=== PATIENT | female | born 1970 | race Caucasian/White ===

== ENCOUNTER → 2017-01-31 | Outpatient (CLI) | payer BC | LOC: RAD 15:10 | PROVIDERS: ATTEND Family Medicine | DX: R20.2 Paresthesia of skin (principal); M50.822 Other cervical disc disorders at C5-C6 level | CPT/HCPCS: 72050 ==

== ENCOUNTER 2017-02-19 19:52 | Observation (INO) | payer BC ==
--- NOTE | 2017-02-19 20:34 | ER Document Report ---
ED General - General Chief Complaint: Chest Pain Stated Complaint: CHEST PAIN Time seen by provider: 20:31 Mode of Arrival: Ambulatory Information source: Patient Notes: The patient is a 46-year-old female with a history of pulmonary sarcoidosis, fibromyalgia, hypokalemia, depression and anxiety. Patient presents to the emergency room with chest tightness for the past 2 days. 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 She felt that her speech was slurred and she was difficulty getting her thoughts across. She denied any focal weakness of her arms and legs. The patient states that her neurologic symptoms lasted approximately 6 hours. Medications: KCl (120 mEq a day), Savella, Xanax, Wellbutrin, Combivent, omega-3 Allergies: Azithromycin, Septra Past surgical history: Fibroids, mediastinoscopy, cardiac ablation for SVT Primary care physician: Anita [employer] Officer: Isaiahorientkhanh Family history: Mother positive for the VTE, coronary artery disease, CHF. Dad: of lymphoma Patient has 3 brothers one of which had a heart attack Patient has 4 sisters TRAVEL OUTSIDE OF THE [place] IN LAST 30 DAYS: No - HPI Onset: Yesterday Onset/Duration: Gradual Quality of pain: Sharp Severity: Moderate Pain Level: 2 Associated symptoms: Chest pain. denies: Fever, Nausea, Shortness of breath Exacerbated by: Denies Relieved by: Denies Similar symptoms previously: Yes Recently seen / treated by doctor: No - Related Data Allergies/Adverse Reactions: Sulfa (Sulfonamide Antibiotics) Allergy (Mild, Verified 12/23/14 17:20) azithromycin [From Zithromax] Allergy (Verified 02/20/17 02:22) Past Medical History - General Information source: Patient - Social History Smoking Status: Never Smoker Cigarette use (# per day): No Chew tobacco use (# tins/day): No Frequency of alcohol use: None Drug Abuse: None Lives with: Family Family History: Arthritis, CAD, CVA, Hyperlipidemia, Hypertension, Malignancy, Other - CHF Patient has suicidal ideation: No Patient has homicidal ideation: No - Past Medical History Cardiac Medical History: Reports: Hx Hypercholesterolemia, Hx Hypertension Pulmonary Medical History: Reports: Hx Asthma Renal/ Medical History: Denies: Hx Peritoneal Dialysis GI Medical History: Reports: Hx Gastroesophageal Reflux Disease, Hx Hiatal Hernia Musculoskeltal Medical History: Reports Hx Fibromyalgia Psychiatric Medical History: Reports: Hx Anxiety, Hx Depression Past Surgical History: Reports: Hx Abdominal Surgery - lap neisen, Hx Cardiac Surgery - ablation 2003, Hx Hysterectomy - Immunizations Immunizations up to date: Yes Hx Diphtheria, Pertussis, Tetanus Vaccination: Yes Hx Pneumococcal Vaccination: 09/25/14 Review of Systems - Review of Systems Constitutional: denies: Chills, Fever EENT: No symptoms reported Cardiovascular: See HPI Respiratory: See HPI Gastrointestinal: No symptoms reported Genitourinary: No symptoms reported Female Genitourinary: No symptoms reported Musculoskeletal: No symptoms reported Skin: No symptoms reported Hematologic/Lymphatic: No symptoms reported Neurological/Psychological: See HPI Physical Exam - Vital signs Vitals: Resp BP Pulse Ox 14 106/77 100 02/19/17 20:33 02/19/17 20:33 02/19/17 20:33 Notes: Physical exam: GENERAL: 46-year-old female, alert and oriented 3, no acute distress HEAD: Atraumatic, normocephalic. EYES: Pupils equal round and reactive to light, extraocular movements intact, sclera anicteric, conjunctiva are normal. ENT: TMs normal, nares patent, oropharynx clear without exudates. Moist mucous membranes. NECK: Normal range of motion, supple without lymphadenopathy or JVD. LUNGS: Breath sounds clear to auscultation bilaterally and equal. No wheezes rales or rhonchi. HEART: Regular rate and rhythm without murmurs, rubs or gallops. ABDOMEN: Soft, normoactive bowel sounds. No tenderness to palpation. No guarding, no rebound. No masses appreciated. EXTREMITIES: Normal range of motion, no pitting or edema. No clubbing or cyanosis. NEUROLOGICAL: Cranial nerves II through XII grossly intact. Normal speech, normal gait. PSYCH: Normal mood, normal affect. SKIN: Warm, Dry, normal turgor, no rashes or lesions noted. Course - Re-evaluation Re-evalutation: 02/19/17 23:19 CTA shows no acute pulmonary emboli. Waiting for a hospitalist for admission. - Vital Signs Vital signs: Temp Pulse Resp BP Pulse Ox 12 112/70 96 02/19/17 23:36 02/19/17 23:36 02/19/17 23:36 - Laboratory Result Diagrams: 02/19/17 21:16 02/19/17 21:16 Laboratory results interpreted by me: 02/19/17 02/20/17 21:16 00:12 Potassium 2.2 L* Chloride 95 L Carbon Dioxide 31 H Est GFR (Non-Af Amer) 53 L Magnesium 1.5 L - Diagnostic Test Radiology reviewed: Image reviewed, Reports reviewed - CT of the head shows no obvious abnormalities. CT of the chest shows no pulmonary emboli. - EKG Interpretation by Me Rate: Normal Rhythm: NSR - EKG shows normal sinus rhythm with a ventricular rate of 85, nonspecific T changes Discharge - Discharge Clinical Impression: chest pain, hypokalemia, hypomagnesemia Admitting Provider: Hospitalist - Dr. Melchor Unit Admitted: Telemetry Referrals: EDWAR ESCUDERO MD [Primary Care Provider] - Follow up as needed
[2017-02-19 21:33] LABS: ABSOLUTE BASOPHILS # (AUTO) 0.1 10^3/uL (0.0-0.2); ABSOLUTE EOSINOPHILS # (AUTO) 0.1 10^3/uL (0.0-0.6); ABSOLUTE LYMPHOCYTES (AUTO) 2.5 10^3/uL (0.5-4.7); ABSOLUTE MONOCYTES (AUTO) 0.5 10^3/uL (0.1-1.4); ABSOLUTE NEUT (AUTO) 2.7 10^3/uL (1.7-8.2); EOSINOPHILS % (AUTO) 1.5 % (0-6); HEMATOCRIT 38.1 % (36.0-47.0); HEMOGLOBIN 13.6 g/dL (12.0-15.5); HGB HCT DIFFERENCE 2.7; LYMPHOCYTES % (AUTO) 42.6 % (13-45); MEAN CORPUSCULAR HEMOGLOBIN 30.5 pg (27.0-33.4); MEAN CORPUSCULAR HGB CONC 35.7 g/dL (32.0-36.0); MEAN CORPUSCULAR VOLUME 86 fl (80-97); MONOCYTES % (AUTO) 7.9 % (3-13); RED BLOOD COUNT 4.46 10^6/uL (3.72-5.28); RED CELL DISTRIBUTION WIDTH 12.9 % (11.5-14.0); WHITE BLOOD COUNT 5.8 10^3/uL (4.0-10.5)
--- NOTE | 2017-02-19 21:35 | EKG REPORT ---
SEVERITY:- ABNORMAL ECG - SINUS RHYTHM ABNORMAL T, CONSIDER ISCHEMIA, LATERAL LEADS : Confirmed by: Eric Mayes 19-Feb-2017 21:34:36
[2017-02-19 21:46] LABS: ALANINE AMINOTRANSFERASE 35 U/L (9-52); ALKALINE PHOSPHATASE 70 U/L (38-126); ANION GAP 15 (5-19); ASPARTATE AMINO TRANSFERASE 36 U/L (14-36); BILIRUBIN,DIRECT 0.2 mg/dL (0.0-0.4); BLOOD UREA NITROGEN 16 mg/dL (7-20); CALCIUM 9.7 mg/dL (8.4-10.2); CARBON DIOXIDE 31 mmol/L (22-30); CHLORIDE 95 mmol/L (98-107); CREATINE KINASE 71 U/L (30-135); CREATININE RESULT 1.12 mg/dL (0.52-1.25); GLUCOSE 97 mg/dL (75-110); SODIUM 141.2 mmol/L (137-145); TOTAL PROTEIN 7.9 g/dL (6.3-8.2)
[2017-02-19 21:49] LABS: POTASSIUM 2.2 mmol/L (3.6-5.0)
[2017-02-19] MEDS ORDERED: POTASSIUM CHLORIDE 20 MEQ/15 ML UDCUP PO ONE (21:54)
[2017-02-19 22:05] LABS: CREATINE KINASE MB 0.62 ng/mL (<4.55); TROPONIN I < 0.012 ng/mL
[2017-02-19] MEDS: POTASSI CL 20 MEQ/50 ML RIDER 50 ML IV SCH (22:20)
[2017-02-20] MEDS: POTASSI CL 20 MEQ/50 ML RIDER 50 ML IV SCH ×3 (01:18→05:56)
[2017-02-20] MEDS: MAGNESIUM SULFATE/D5W 100 ML IV SCH ×2 (01:51→03:23)
[2017-02-20] MEDS: ENOXAPARIN SODIUM INJ 40 MG/0.4 ML DISP.SYRIN SUBCUT SCH (08:43)
[2017-02-20] MEDS: POTASSI CL 20 MEQ/D5NS 1L 1,000 ML IV PRN (08:44)
[2017-02-20] MEDS ORDERED: POTASSI CL 20 MEQ/50 ML RIDER 20 MEQ/50 ML RTUPB IV SCH (09:00)
[2017-02-20] MEDS: ACETAMINOPHEN 325 MG TABLET PO PRN ×2 (09:57→14:31)
[2017-02-20 09:58] LABS: APPEARANCE,URINE CLEAR; BILIRUBIN,URINE NEGATIVE (NEGATIVE); GLUCOSE, URINE NEGATIVE (NEGATIVE); KETONES,URINE NEGATIVE (NEGATIVE); LEUKOCYTE ESTERASE,URINE MODERATE (NEGATIVE); NITRITE,URINE NEGATIVE (NEGATIVE); PROTEIN,URINE NEGATIVE (NEGATIVE); URINE SPECIFIC GRAVITY 1.011; UROBILINOGEN,URINE NEGATIVE mg/dL (<2.0)
--- NOTE | 2017-02-20 10:03 | PDOC H&P ---
History of Present Illness Admission Date/PCP: 02/20/17 03:13 DR. Howard Patient complains of: chest pain, slurred speech, paresthesias History of Present Illness: TOOTIE MCKENZIE is a 46 year old female with underlying pulmonary sarcoidosis, fibromyalgia, intermittent hypokalemia, mild anxiety and depression , without suicidal or homicidal ideation, obstructive sleep apnea, on CPAP of 14 , easy bruising, mild reflux, asthma, and hyperlipidemia who presents to the emergency room for evaluation of above complaints. Patient has been discussed with emergency room physician who evaluated the patient. She describes a 2 day history of intermittent mild substernal chest pressure- like discomfort and tightness with radiation to her back. She's had prior such discomfort, but without the radiation to her back. Nothing in particular made the discomfort worse. Chest pain is currently resolved. No associated nausea vomiting, fever or chills. She also describes approximate 6 hour history on the 24 of mild slurring of her speech and difficulty getting her thoughts across, along with some mild numbness and tingling of the left side of her face. No focal weakness. No prior such episodes. No previous seizure stroke TIA or mini stroke. Does have a history of migraines, but currently denies any headache. Cardiac history is remarkable for an ablation of an aberrant tract in 2004 for SVT. No cardiac workup since then. No history of pulmonary embolus or DVT. No recent long trip with prolonged inactivity, or unusual lower extremity swelling or tenderness. Family history remarkable for brother with early coronary artery disease. Laboratory results are listed in [facility] and are reviewed. X-ray summary results are listed below, with full report(s) reviewed. . EKG reviewed. And compared to prior tracing from March 20 of last year. Social history/personal habits: Single. No children. Works as a private banker. No use of alcohol tobacco or illicit drugs. Allergies/adverse reactions are listed in [facility] and are reviewed. Home medications Home medications initially autopopulated into [facility] may not accurately reflect patient's true medications, dosages, and/or frequencies. 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 Unfortunately, patient uncertain of all her medications/dosages/frequencies. REVIEW OF SYSTEMS: Constitutional: No fever or chills. Eyes: Wears glasses. ENT: No swallowing problems or complaints. No hearing problems or complaints. Pulmonary: No current complaints. Cardiovascular: See history and present illness. Gastrointestinal: No current complaints, including nausea or vomiting. Skin: No current complaints, including rashes. Hematologic: Easy bruising. Neurologic: See history and present illness. Musculoskeletal: No current complaints, including painful joints. Psychiatric: Mild Anxiety depression; denies suicidal or homicidal ideation. Endocrine: No current complaints, including polyuria. Genitourinary: No current complaints, including dysuria. PHYSICAL EXAMINATION: 5 feet 4 inches tall. 74.8 kg. BMI 28.3 kg/m. Blood pressure 121/78. Pulse 83 and regular. 96% saturation on room air. Respirations are 12 and unlabored. Temperature not recorded on the chart; skin feels normothermic. Slightly overweight otherwise well-nourished well-developed middle-aged female appearing approximately her stated age. Pleasant awake alert and cooperative. No obvious distress other than perhaps mildly anxious. Female emergency room nurse Gilma is present. Skin is warm and dry. No grossly obvious evidence of rash in areas of skin examined. No subcutaneous nodules palpated. ENT: Hearing grossly normal to normal conversation. Tongue midline on protrusion pink and slightly moist. Eyes: No scleral icterus. Pupils equal and reactive to light at 4 mm. [place] conjunctivae. Neck is supple and nontender to gentle active range of motion and palpation. Midline trachea. No palpable thyroid nodule mass enlargement or tenderness. Lymphatic: No palpable cervical or clavicular nodes. Neck and lymphatic exams limited by patient body habitus. Psychiatric: Reasonable insight into acute and chronic medical issues. Oriented to time location and why here. Lungs: Auscultation reveals clear and equal breath sounds bilaterally. No use of accessory respiratory muscles. Cardiovascular: Heart regular rate and rhythm, without gallop murmur or rub. No carotid or abdominal aortic bruits. No ankle or pedal edema. Faintly palpable dorsalis pedis pulses. Abdomen: soft, slightly distended nontender with positive bowel sounds. Unable to adequately evaluate abdomen for masses or organomegaly due to distention. Compression of neither her upper abdomen nor sternum reproduces her previously noted chest discomfort. Extremities: Hands and Feet are warm and dry. No calf tenderness to compression. No grossly obvious visual evidence of calf swelling. Gentle manipulation of upper and lower extremities fails to reveal any obvious evidence of injury or instability to involved major joints. Neurologic: Cranial Nerves II through XII are grossly intact. Light touch intact at right face, right upper and lower extremities, but slightly decreased at same areas on the left. Motor function of major muscle groups upper and lower extremities 5 over 5 and symmetric. Patellar reflexes absent. Absent Babinski. Past Medical History Cardiac Medical History: Reports: Hyperlipidema, Hypertension, Other - History of SVT, status post ablation 2004. Denies: Congestive Heart Failure, DVT, Myocardial Infarction, Pulmonary Embolism Pulmonary Medical History: Reports: Asthma, Sleep Apnea - CPAP 14, room air. Denies: Chronic Obstructive Pulmonary Disease (COPD) EENT Medical History: Reports: Eyes - Glasses Denies: Ears, Throat Neurological Medical History: Reports: Migraine Denies: Hemorrhagic CVA, Ischemic CVA, Seizures Endocrine Medical History: Denies: Diabetes Mellitus Type 1, Diabetes Mellitus Type 2, Hyperthyroidism, Hypothyroidism Renal/ Medical History: Reports: None GI Medical History: Reports: Gastroesophageal Reflux Disease Denies: Cirrhosis, Hepatitis, Peptic Ulcer Disease Musculoskeltal Medical History: Reports: Fibromyalgia Skin Medical History: Reports: None Psychiatric Medical History: Reports: Depression, General Anxiety Disorder Denies: Alcohol Dependency, Substance Abuse, Tobacco Dependency Hematology: Reports: Other - Easy bruising Infectious Medical History: Denies: Clostridium Difficile, Hepatitis B, Hepatitis C, Methicillin- Resistant Staph Aureus Past Surgical History Past Surgical History: Reports: Hysterectomy Social History Information Source: Patient, Emergency Med Personnel, [facility] Records Smoking Status: Never Smoker Frequency of Alcohol Use: None Hx Recreational Drug Use: No Drugs: None Hx Prescription Drug Abuse: No - Advance Directive Resuscitation Status: Full Code Surrogate healthcare decision maker:: Uncertain at this point. Family History Family History: Arthritis, CAD, CVA, Hyperlipidemia, Hypertension, Malignancy, Other - CHF Parental Family History Reviewed: Yes - father non-Hodgkin's lymphoma. Mother is hypertensive. Children Family History Reviewed: NA Sibling(s) Family History Reviewed.: Yes - Hypertension Medication/Allergy Home Medications: RX: Alprazolam [Xanax] 1 mg PO Q8HP PRN 02/20/17 RX: Bupropion HCl [Bupropion HCl Sr] 450 mg PO DAILY 02/20/17 RX: Esomeprazole Magnesium [Nexium] 40 mg PO DAILY 02/20/17 RX: Hydrocodone/Ibuprofen [Hydrocodone-Ibuprofen 7.5-200] 1 each PO Q4HP PRN RX: Ipratropium/Albuterol Sulfate [Combivent Respimat 4 gm Mdi] 2 puff IH BID RX: Metoclopramide HCl [Reglan] 5 mg PO TIDP PRN 02/20/17 RX: Milnacipran HCl [Savella] 50 mg PO Q8HP PRN 02/20/17 RX: Montelukast Sodium [Singulair 10 mg Tablet] 10 mg PO WSUPPER 02/20/17 RX: [place]-3 Fatty Acids [[place]-3] 1,000 mg PO BID 02/20/17 RX: Potassium Chloride [K-Tab ER] 20 meq PO BID 02/20/17 RX: Pravastatin Sodium [Pravachol] 80 mg PO QHS 02/20/17 RX: Trazodone HCl [Desyrel] 75 mg PO QHS 02/20/17 RX: Aspirin [Ecotrin 325 mg EC Tablet] 325 mg PO DAILY tabec 02/21/17 RX: Spironolactone [Aldactone 25 mg Tablet] 50 mg PO DAILY #30 tablet 02/21/17 Allergies/Adverse Reactions: Sulfa (Sulfonamide Antibiotics) Allergy (Mild, Verified 12/23/14 17:20) azithromycin [From Zithromax] Allergy (Verified 02/20/17 02:22) Physical Exam Vital Signs: Temp Pulse Resp BP Pulse Ox 20 111/52 L 97 02/20/17 07:01 02/20/17 07:01 02/20/17 07:01 Results Impressions: Chest X-Ray 02/19/17 20:03 IMPRESSION: NO ACUTE RADIOGRAPHIC FINDING IN THE CHEST. Chest/Abdomen CTA 02/19/17 22:26 IMPRESSION: NORMAL CTA OF THE CHEST. NO PULMONARY EMBOLI. Head CT 02/19/17 22:26 IMPRESSION: NORMAL BRAIN CT WITHOUT CONTRAST. Assessment & Plan - Diagnosis (5) Acute focal neurological deficit Is this a current diagnosis for this admission?: YesPlan: Patient will be placed in observation bed under CVA/TIA protocol. Multiple imaging procedures, intracranial, vascular, and cardiac. lipid panel. Permissive hypertension. Patient is a full code. I have strongly urged patient not to get out of bed without notifying nursing staff, to avoid a fall with injury.] Knee high SCDs for DVT prophylaxis, along with subcutaneous Lovenox . Impression and plans were discussed with patient, who concurs. Time spent in evaluation and management of patient: 65 minutes (6) Chest pain Qualifiers: Chest pain type: unspecified Qualified Code(s): R07.9 - Chest pain, unspecified Is this a current diagnosis for this admission?: YesPlan: No evidence of acute coronary syndrome. Repeat troponin. Lipid panel. Repeat EKG. Encouraged patient to notify staff should chest pain recur. (7) Hypokalemia Is this a current diagnosis for this admission?: YesPlan: Potassium replacement with follow-up chemistry. (8) Hypomagnesemia Is this a current diagnosis for this admission?: YesPlan: Follow-up chemistry. Replace as needed. (9) Paresthesias Is this a current diagnosis for this admission?: Yes (10) Anxiety Is this a current diagnosis for this admission?: YesPlan: Resume home medications as appropriate once these have been determined and reviewed.
[2017-02-20] MEDS: DOCUSATE SODIUM 100 MG CAPSULE PO SCH ×2 (11:48→16:51)
[2017-02-20] MEDS: ASPIRIN 325 MG TABLET, ENT COATED PO SCH (14:22)
[2017-02-20 15:12] LABS: ANION GAP 15 (5-19); BLOOD UREA NITROGEN 8 mg/dL (7-20); CALCIUM 9.6 mg/dL (8.4-10.2); CARBON DIOXIDE 26 mmol/L (22-30); CHLORIDE 104 mmol/L (98-107); CHOLESTEROL 166.94 mg/dL (0-200); CREATININE RESULT 0.84 mg/dL (0.52-1.25); Direct HDL 66 mg/dL (>40); GLUCOSE 97 mg/dL (75-110); MAGNESIUM 2.2 mg/dL (1.6-2.3); SODIUM 145.1 mmol/L (137-145); TRIGLYCERIDES 118 mg/dL (<150)
[2017-02-20 15:17] LABS: PROTHROMBIN TIME 13.3 SEC (11.4-15.4)
[2017-02-20 15:18] LABS: PARTIAL THROMBOPLASTIN TIME 28.4 SEC (23.5-35.8)
[2017-02-20 15:22] LABS: DIRECT LDL 59 mg/dL (<100)
[2017-02-20 15:35] LABS: POTASSIUM 2.7 mmol/L (3.6-5.0)
[2017-02-20] MEDS ORDERED: SPIRONOLACTONE 25 MG TABLET PO ONE (16:35)
[2017-02-20] MEDS ORDERED: BUTALB/ACETAMINOPHEN/CAFFEINE 1 TAB EACH PO PRN (16:36)
--- NOTE | 2017-02-20 17:21 | XCELERA REPORT ---
[address] [address] Transthoracic Echocardiogram Report Name: TOOTIE MCKENZIE Age: 46 yrs Gender: Female : 1970 Patient Status: Inpatient Patient Location: \S\10\S\A Study Date: 02/20/2017 10:16 AM Height: 64 in Weight: 165 lb BSA: 1.8 m2 Procedure: A complete two-dimensional transthoracic echocardiogram was performed (2D, M-mode, spectral and color flow Doppler). The study was technically difficult with many images being suboptimal in quality. Reason For Study: tia vs cva Ordering Physician: MARA JIMEENZ Performed By: Hebert Tabor Interpretation Summary The left ventricular ejection fraction is normal. Doppler measurements suggest impaired left ventricular relaxation, which is associated with grade I/IV or mild diastolic dysfunction There is normal left ventricular wall thickness. The left ventricle is grossly normal size. Wall motion cannot be accurately commented on, but no definite regional wall motion abnormalities noted. Borderline right ventricular enlargement. The right ventricular systolic function is normal. The left atrial size is normal. The right atrium is normal in size There is a trace amount of mitral regurgitation There is no mitral valve stenosis. No aortic regurgitation is present. There is no aortic valve stenosis There is a trace or physiologic amount of tricuspid regurgitation Tricuspid regurgitation jet envelope not well defined to measure RV systolic pressure accurately. The aortic root is not well visualized. The inferior vena cava appeared normal and decreased > 50% with respiration (RAP 5-10 mmHg) There is no pericardial effusion. MMode/2D Measurements \T\ Calculations RVDd: 2.6 cm LVIDd: 4.3 cm FS: 33.4 % Ao root diam: 2.7 cm IVSd: 0.70 cm LVIDs: 2.8 cm EDV(Teich): 81.7 ml LVPWd: 0.66 cm ESV(Teich): 30.8 ml Ao root area: 5.5 cm2 EF(Teich): 62.4 % LA dimension: 2.8 cm Doppler Measurements \T\ Calculations MV E max jose: MV P1/2t max jose: Ao V2 max: LV V1 max P.9 cm/sec 76.2 cm/sec 124.1 cm/sec 3.7 mmHg MV A max jose: MV P1/2t: 56.7 msec Ao max PG: LV V1 max: 83.6 cm/sec 6.2 mmHg 95.7 cm/sec MV E/A: 0.93 MVA(P1/2t): 3.9 cm2 MV dec slope: 394.0 cm/sec2 PA V2 max: TR max jose: RAP systole: 93.3 cm/sec 181.3 cm/sec 10.0 mmHg PA max PG: TR max P.2 mmHg 3.5 mmHg RVSP(TR): 23.2 mmHg Left Ventricle The left ventricle is grossly normal size. There is normal left ventricular wall thickness. The left ventricular ejection fraction is normal. Doppler measurements suggest impaired left ventricular relaxation, which is associated with grade I/IV or mild diastolic dysfunction. Wall motion cannot be accurately commented on, but no definite regional wall motion abnormalities noted. Right Ventricle Borderline right ventricular enlargement. There is normal right ventricular wall thickness. The right ventricular systolic function is normal. Atria The right atrium is normal in size. The left atrial size is normal. Interarterial septum not well visualized and not well dopplered. Cannot comment on ASD/PFO presence. Mitral Valve The mitral valve is grossly normal. There is no mitral valve stenosis. There is a trace amount of mitral regurgitation. Aortic Valve The aortic valve is not well visualized secondary to technical limitations. There is no aortic valve stenosis. No aortic regurgitation is present. Tricuspid Valve The tricuspid valve is not well visualized secondary to technical limitations. There is no tricuspid stenosis. There is a trace or physiologic amount of tricuspid regurgitation. Tricuspid regurgitation jet envelope not well defined to measure RV systolic pressure accurately. Pulmonic Valve The pulmonic valve is not well visualized. Great Vessels The aortic root is not well visualized. The inferior vena cava appeared normal and decreased > 50% with respiration (RAP 5-10 mmHg). Effusions There is no pericardial effusion. : MARA JIMENEZ > Eric Mayes
[2017-02-20] MEDS: POTASSI CL 20 MEQ/50 ML RIDER 20 MEQ/50 ML RTUPB IV SCH ×2 (17:33→19:09)
--- NOTE | 2017-02-20 18:59 | PDOC PROGRESS REPORT ---
Subjective Progress Note for:: 02/20/17 Subjective:: Denies any complaints. Physical Exam Vital Signs: Temp Pulse Resp BP Pulse Ox 98.4 F 78 20 119/71 98 02/20/17 15:07 02/20/17 16:00 02/20/17 16:00 02/20/17 16:00 02/20/17 16:00 Intake & Output 02/19/17 02/20/17 02/21/17 06:59 06:59 06:59 Weight 76.1 kg General appearance: PRESENT: no acute distress Eye exam: PRESENT: conjunctiva pink. ABSENT: scleral icterus Mouth exam: PRESENT: moist, tongue midline Neck exam: ABSENT: JVD Respiratory exam: PRESENT: clear to auscultation tabby. ABSENT: rales, rhonchi, wheezes Cardiovascular exam: PRESENT: RRR. ABSENT: diastolic murmur, rubs, systolic murmur GI/Abdominal exam: PRESENT: normal bowel sounds, soft. ABSENT: distended, guarding, mass, organolmegaly, rebound, tenderness Extremities exam: ABSENT: calf tenderness, clubbing, pedal edema Neurological exam: PRESENT: alert, awake, oriented to person, oriented to place , oriented to time, oriented to situation, CN II-XII grossly intact. ABSENT: motor sensory deficit Psychiatric exam: PRESENT: appropriate affect Skin exam: PRESENT: dry, intact, warm. ABSENT: cyanosis, rash Results Laboratory Results: 02/20/17 14:30 02/20/17 02/20/17 08:55 14:30 Sodium 145.1 H Potassium 2.7 L* Chloride 104 Carbon Dioxide 26 Anion Gap 15 BUN 8 Creatinine 0.84 Est GFR ( Amer) > 60 Est GFR (Non-Af Amer) > 60 Glucose 97 Calcium 9.6 Magnesium 2.2 Triglycerides 118 Cholesterol 166.94 LDL Cholesterol Direct 59 VLDL Cholesterol 24.0 HDL Cholesterol 66 Urine Color STRAW Urine Appearance CLEAR Urine pH 7.0 Ur Specific [place] 1.011 Urine Protein NEGATIVE Urine Glucose (UA) NEGATIVE Urine Ketones NEGATIVE Urine Blood SMALL H Urine Nitrite NEGATIVE Ur Leukocyte Esterase MODERATE H Urine WBC (Auto) 1 Urine RBC (Auto) 0 02/20/17 14:30 Troponin I < 0.012 Impressions: Chest X-Ray 02/19/17 20:03 IMPRESSION: NO ACUTE RADIOGRAPHIC FINDING IN THE CHEST. Chest/Abdomen CTA 02/19/17 22:26 IMPRESSION: NORMAL CTA OF THE CHEST. NO PULMONARY EMBOLI. Head CT 02/19/17 22:26 IMPRESSION: NORMAL BRAIN CT WITHOUT CONTRAST. Brain MRI with MRA 02/20/17 07:46 IMPRESSION: NORMAL MRA OF [facility] [place] [facility] [place]. Head MRI 02/20/17 07:46 IMPRESSION: Normal brain. Carotid Doppler Study 02/20/17 07:47 IMPRESSION: NO HEMODYNAMICALLY SIGNIFICANT STENOSIS. Assessment & Plan - Diagnosis (1) Acute focal neurological deficit Is this a current diagnosis for this admission?: YesPlan: The patient had some paresthesias that may be related to her hypokalemia. Patient has had an MRI, carotid Doppler, echocardiogram which have been unrevealing. (2) Asthma Is this a current diagnosis for this admission?: Yes (3) HLD (hyperlipidemia) Is this a current diagnosis for this admission?: Yes (4) Hypokalemia Is this a current diagnosis for this admission?: YesPlan: Patient has had a long-standing problem with hypokalemia in spite of taking significant amounts of oral replacements. She also has had some problems with peripheral edema. I'm suspicious that this may represent hyperaldosteronism. We'll check an aldosterone level and start on spironolactone. (5) Hypomagnesemia Is this a current diagnosis for this admission?: Yes (6) NATHANIEL (obstructive sleep apnea) Is this a current diagnosis for this admission?: YesPlan: Continue with CPAP daily at bedtime. (7) Anxiety Is this a current diagnosis for this admission?: Yes (8) Fibromyalgia Is this a current diagnosis for this admission?: Yes (9) GERD (gastroesophageal reflux disease) Is this a current diagnosis for this admission?: Yes - Time Time Spent with patient: 25-34 minutes - Inpatient Certification Medical Necessity: Need Close Monitoring Due to Risk of Patient Decompensation - Plan Summary Plan Summary: If her potassium improves by morning we can discharge her home.
[2017-02-21] MEDS: POTASSI CL 20 MEQ/D5NS 1L 1,000 ML IV PRN ×2 (00:27→08:32)
[2017-02-21 05:20] LABS: ABSOLUTE BASOPHILS # (AUTO) 0.1 10^3/uL (0.0-0.2); ABSOLUTE EOSINOPHILS # (AUTO) 0.1 10^3/uL (0.0-0.6); ABSOLUTE LYMPHOCYTES (AUTO) 2.3 10^3/uL (0.5-4.7); ABSOLUTE MONOCYTES (AUTO) 0.4 10^3/uL (0.1-1.4); ABSOLUTE NEUT (AUTO) 1.8 10^3/uL (1.7-8.2); BASOPHILS % (AUTO) 1.5 % (0-2); EOSINOPHILS % (AUTO) 2.2 % (0-6); HEMATOCRIT 32.5 % (36.0-47.0); HEMOGLOBIN 11.7 g/dL (12.0-15.5); HGB HCT DIFFERENCE 2.6; LYMPHOCYTES % (AUTO) 50.1 % (13-45); MEAN CORPUSCULAR HEMOGLOBIN 31.1 pg (27.0-33.4); MEAN CORPUSCULAR HGB CONC 35.9 g/dL (32.0-36.0); MEAN CORPUSCULAR VOLUME 87 fl (80-97); MONOCYTES % (AUTO) 8.2 % (3-13); RED BLOOD COUNT 3.76 10^6/uL (3.72-5.28); RED CELL DISTRIBUTION WIDTH 12.9 % (11.5-14.0); WHITE BLOOD COUNT 4.7 10^3/uL (4.0-10.5)
[2017-02-21] MEDS: DOCUSATE SODIUM 100 MG CAPSULE PO SCH (09:20)
[2017-02-21] MEDS: ASPIRIN 325 MG TABLET, ENT COATED PO SCH (09:20)
[2017-02-21] MEDS: ENOXAPARIN SODIUM INJ 40 MG/0.4 ML DISP.SYRIN SUBCUT SCH (09:20)
[2017-02-21 09:21] LABS: ANION GAP 12 (5-19); BLOOD UREA NITROGEN 10 mg/dL (7-20); CALCIUM 9.2 mg/dL (8.4-10.2); CARBON DIOXIDE 25 mmol/L (22-30); CHLORIDE 108 mmol/L (98-107); CREATININE RESULT 0.91 mg/dL (0.52-1.25); GLUCOSE 122 mg/dL (75-110); POTASSIUM 3.2 mmol/L (3.6-5.0); SODIUM 145.1 mmol/L (137-145)
[2017-02-21] MEDS ORDERED: SPIRONOLACTONE 25 MG TABLET PO SCH (10:00)
[2017-02-21] MEDS: POTASSI CL 20 MEQ/50 ML RIDER 20 MEQ/50 ML RTUPB IV SCH ×2 (10:20→12:02)
[2017-02-21 12:48] VITALS: BP 133/77
--- NOTE | 2017-02-21 18:09 | PDOC DISCHARGE SUMMARY ---
General - Admit/Disc Date/PCP Admission Date/Primary Care Provider: 02/20/17 07:43 Discharge Date: 02/21/17 - Discharge Diagnosis (1) Acute focal neurological deficit Is this a current diagnosis for this admission?: YesSummary: Most likely secondary to her symptomatic hypokalemia. (2) Asthma Is this a current diagnosis for this admission?: Yes (3) HLD (hyperlipidemia) Is this a current diagnosis for this admission?: Yes (4) Hypokalemia Is this a current diagnosis for this admission?: YesSummary: Possibly secondary to hyperaldosteronism. Aldosterone levels pending at the time of this dictation. (5) Hypomagnesemia Is this a current diagnosis for this admission?: Yes (6) NATHANIEL (obstructive sleep apnea) Is this a current diagnosis for this admission?: Yes (7) Anxiety Is this a current diagnosis for this admission?: Yes (8) Fibromyalgia Is this a current diagnosis for this admission?: Yes (9) GERD (gastroesophageal reflux disease) Is this a current diagnosis for this admission?: Yes - Additional Information Resuscitation Status: Full Code Discharge Diet: Cardiac Discharge Activity: Activity As Tolerated Home Medications: Alprazolam [Xanax] 1 mg PO Q8HP PRN 02/20/17 Bupropion HCl [Bupropion HCl Sr] 450 mg PO DAILY 02/20/17 Esomeprazole Magnesium [Nexium] 40 mg PO DAILY 02/20/17 Hydrocodone/Ibuprofen [Hydrocodone-Ibuprofen 7.5-200] 1 each PO Q4HP PRN Ipratropium/Albuterol Sulfate [Combivent Respimat 4 gm Mdi] 2 puff IH BID Metoclopramide HCl [Reglan] 5 mg PO TIDP PRN 02/20/17 Milnacipran HCl [Savella] 50 mg PO Q8HP PRN 02/20/17 Montelukast Sodium [Singulair 10 mg Tablet] 10 mg PO WSUPPER 02/20/17 Midland-3 Fatty Acids [Midland-3] 1,000 mg PO BID 02/20/17 Potassium Chloride [K-Tab ER] 20 meq PO BID 02/20/17 Pravastatin Sodium [Pravachol] 80 mg PO QHS 02/20/17 Trazodone HCl [Desyrel] 75 mg PO QHS 02/20/17 Aspirin [Ecotrin 325 mg EC Tablet] 325 mg PO DAILY tabec 02/21/17 Spironolactone [Aldactone 25 mg Tablet] 50 mg PO DAILY #30 tablet 02/21/17 History of Present Illness History of Present Illness: TOOTIE MCKENZIE is a 46 year old female who presented to emergency room with some chest discomfort as well as some paresthesias. Patient has had problems with persistent hypokalemia. She presented with a six-hour history of some difficulty with her speech and tingling and numbness in the left side of her face and generalized weakness. Hospital Course Hospital Course: 46-year-old female admitted with what was initially thought to be a neurological deficit because of some paresthesias but this resolved with correction of her hypokalemia. Patient reports that she's had previous episodes but her potassium is down low. The patient has been taking supplements as an outpatient and has continued to have low potassium in spite of this. This was suspicious that she may have primary hyperaldosteronism. An aldosterone level was drawn and she was started on spironolactone. She also was given IV replacement potassium. The results of the aldosterone level were pending at the time of this dictation. Physical Exam Vital Signs: Temp Pulse Resp BP Pulse Ox 98.3 F 87 19 133/77 H 100 02/21/17 12:45 02/21/17 12:45 02/21/17 12:45 02/21/17 12:45 02/21/17 12:45 Intake & Output 02/20/17 02/21/17 02/22/17 06:59 06:59 06:59 Intake Total 2213 118 Balance 2213 118 Weight 79.3 kg General appearance: PRESENT: no acute distress Eye exam: PRESENT: conjunctiva pink. ABSENT: scleral icterus Ear exam: PRESENT: normal external ear exam Mouth exam: PRESENT: moist, tongue midline Neck exam: ABSENT: JVD Respiratory exam: PRESENT: clear to auscultation tabby. ABSENT: rales, rhonchi, wheezes Cardiovascular exam: PRESENT: RRR. ABSENT: diastolic murmur, rubs, systolic murmur GI/Abdominal exam: PRESENT: normal bowel sounds, soft. ABSENT: distended, guarding, mass, organolmegaly, rebound, tenderness Extremities exam: ABSENT: calf tenderness, clubbing, pedal edema Neurological exam: PRESENT: alert, awake, oriented to person, oriented to place , oriented to time, oriented to situation, CN II-XII grossly intact. ABSENT: motor sensory deficit Psychiatric exam: PRESENT: appropriate affect Skin exam: PRESENT: dry, intact, warm. ABSENT: cyanosis, rash Results Laboratory Results: 02/21/17 04:40 02/21/17 07:58 02/21/17 02/21/17 02/21/17 04:40 04:40 06:58 WBC 4.7 RBC 3.76 Hgb 11.7 L Hct 32.5 L MCV 87 MCH 31.1 MCHC 35.9 RDW 12.9 Plt Count 241 Seg Neutrophils % 38.0 L Lymphocytes % 50.1 H Monocytes % 8.2 Eosinophils % 2.2 Basophils % 1.5 Absolute Neutrophils 1.8 Absolute Lymphocytes 2.3 Absolute Monocytes 0.4 Absolute Eosinophils 0.1 Absolute Basophils 0.1 Sodium Cancelled Cancelled Potassium Cancelled Cancelled Chloride Cancelled Cancelled Carbon Dioxide Cancelled Cancelled Anion Gap Cancelled Cancelled BUN Cancelled Cancelled Creatinine Cancelled Cancelled Est GFR ( Amer) Cancelled Cancelled Est GFR (Non-Af Amer) Cancelled Cancelled Glucose Cancelled Cancelled Calcium Cancelled Cancelled 02/21/17 07:58 WBC RBC Hgb Hct MCV MCH MCHC RDW Plt Count Seg Neutrophils % Lymphocytes % Monocytes % Eosinophils % Basophils % Absolute Neutrophils Absolute Lymphocytes Absolute Monocytes Absolute Eosinophils Absolute Basophils Sodium 145.1 H Potassium 3.2 L Chloride 108 H Carbon Dioxide 25 Anion Gap 12 BUN 10 Creatinine 0.91 Est GFR ( Amer) > 60 Est GFR (Non-Af Amer) > 60 Glucose 122 H Calcium 9.2 02/20/17 14:30 Troponin I < 0.012 Impressions: Chest X-Ray 02/19/17 20:03 IMPRESSION: NO ACUTE RADIOGRAPHIC FINDING IN THE CHEST. Chest/Abdomen CTA 02/19/17 22:26 IMPRESSION: NORMAL CTA OF THE CHEST. NO PULMONARY EMBOLI. Head CT 02/19/17 22:26 IMPRESSION: NORMAL BRAIN CT WITHOUT CONTRAST. Brain MRI with MRA 02/20/17 07:46 IMPRESSION: NORMAL MRA OF THE [place] OF [place]. Head MRI 02/20/17 07:46 IMPRESSION: Normal brain. Carotid Doppler Study 02/20/17 07:47 IMPRESSION: NO HEMODYNAMICALLY SIGNIFICANT STENOSIS. Qualifiers PATEINT BEING DISCHARGED WITH ANY OF THE FOLLOWING DIAGNOSIS?: No Plan Discharge Plan: Patient discharged home in stable condition. Will follow primary care in 2 weeks. Time Spent: Less than 30 Minutes
== END 2017-02-21 14:40 | disposition home or self-care (01) ==
LOC: ER 19:52 → UNDOADMOB 02-20 03:13 → EH 02-20 03:13 → 3N 02-20 12:32
PROVIDERS: ADMIT Family Medicine; ATTEND Family Medicine
DX: R29.818 Other symptoms and signs involving the nervous system (principal); J45.909 Unspecified asthma, uncomplicated; E78.5 Hyperlipidemia, unspecified; E87.6 Hypokalemia; E83.42 Hypomagnesemia; G47.33 Obstructive sleep apnea (adult) (pediatric); F41.9 Anxiety disorder, unspecified; M79.7 Fibromyalgia; K21.9 Gastro-esophageal reflux disease without esophagitis; D86.0 Sarcoidosis of lung; F32.9 Major depressive disorder, single episode, unspecified; F41.1 Generalized anxiety disorder; Z79.899 Other long term (current) drug therapy; Z79.82 Long term (current) use of aspirin; Z82.49 Family history of ischemic heart disease and other diseases of the circulatory system; Z98.890 Other specified postprocedural states; Z90.710 Acquired absence of both cervix and uterus; Z82.3 Family history of stroke; Z80.7 Family history of other malignant neoplasms of lymphoid, hematopoietic and related tissues
CPT/HCPCS: 93005; 99285; 96365; 96366; 36415 ×3; 82553; 82088; 82550; 83735; 85025 ×2; 85610; 85730; 80048 ×2; 80053; 81001; 84484 ×2; 80061; 93306; 93880; 70551; 70544; 71010; 70450; 71275; 93010; 97163; 97167; G0378 ×3; J3490 ×2; J3480 ×5; J1650; J3475

== ENCOUNTER → 2017-12-05 | Outpatient (CLI) | payer BC ==
--- NOTE | 2017-12-05 15:55 | WOMENS IMAGING REPORT ---
EXAM DESCRIPTION: 3D SCREENING MAMMO BILAT COMPLETED DATE/TIME: 12/05/2017 2:22 pm REASON FOR STUDY: ROUTINE SCREENING; Z12.31 Z12.31 ENCNTR SCREEN MAMMOGRAM FOR MALIGNANT NEOPLASM O F [place] COMPARISON: 10/04/2016 and 09/20/2015. TECHNIQUE: Standard craniocaudal and mediolateral oblique views of each breast recorded using digita l acquisition and breast tomosynthesis. LIMITATIONS: None. FINDINGS: RIGHT BREAST MASSES: No suspicious masses. CALCIFICATIONS: Increasing calcifications in the upper-outer breast, located 7 cm from the nipple. ARCHITECTURAL DISTORTION: None. DEVELOPING DENSITY: None. ASYMMETRY: None noted. OTHER: No other significant findings. LEFT BREAST MASSES: No suspicious masses. CALCIFICATIONS: No new or suspicious calcifications. ARCHITECTURAL DISTORTION: None. DEVELOPING DENSITY: None. ASYMMETRY: None noted. OTHER: No other significant findings. Read with the assistance of CAD. .[facility] - R2 Cenova Version 1.3 .[facility] Imaging - R2 Cenova Version 1.3 .[facility] Imaging - R2 Cenova Version 2.4 .[facility] - R2 Cenova Version 2.4 .[facility] - R2 [employer] Sander Version 9.2 IMPRESSION: Increasing calcifications in the upper-outer right breast. Stable mammographic appearan ce of the left breast. BREAST DENSITY: b. There are scattered areas of fibroglandular density. BIRAD: 0 Incomplete: Needs Additional Imaging Evaluation and/or prior Mammograms for Comparison. RECOMMENDATION: RECOMMENDED FOLLOW-UP: Recommend additional evaluation with magnification views of t he right breast. Recommend routine screening mammography of the left breast. The patient will be contacted for additional imaging. COMMENT: The patient has been notified of the results by letter per SA requirements. Additional no tification policies are in place for contacting patient with suspicious or incomplete findings. Quality ID #[id number]: The [employer] recommends an annual screening mammogram for women aged 40 years or over. This facility utilizes a reminder system to ensure that all patients receive reminder letters, and/or direct phone calls for appointments. This includes reminders for routine scr eening mammograms, diagnostic mammograms, or other Breast Imaging Interventions when appropriate. Th is patient will be placed in the appropriate reminder system. The [employer] (ACR) has developed recommendations for screening MRI of the breast s in certain patient populations, to be used in conjunction with mammography. Breast MRI surveillanc e may be appropriate for women with more than 20% lifetime risk of developing breast cancer as deter mined by genetic testing, significant family history of the disease, or history of mantle radiation f or Hodgkins Disease. ACR Practice Guidelines 2008. DBT Technology DBT is a type of tomographic mammography. With conventional mammography, overlapping breast tissue ma y make lesions difficult to detect, even with good compression. DBT uses an x-ray tube that rotates a round the breast, taking images at different angles. These images are then combined to create thin sl ices of the breast that the radiologist can view as a 3D reconstruction. The [employer] unit can perform full-field digital mammograms (2D imaging); or DBT (3D imaging); or both, in a combination mode that quickly performs both the mammogram and the tomosynthesis scan while the breast is still compressed. PQRS 6045F: Fluoroscopic imaging is not utilized for breast tomosynthesis. TECHNICAL DOCUMENTATION: FINDING NUMBER: (1) ASSESSMENT: (1) JOB ID: [id number] [employer]- All Rights Reserved
== END ==
LOC: WI 14:03
PROVIDERS: ATTEND Family Medicine
DX: Z12.31 Encounter for screening mammogram for malignant neoplasm of breast (principal); R92.0 Mammographic microcalcification found on diagnostic imaging of breast
CPT/HCPCS: 77063; 77067

== ENCOUNTER → 2017-12-19 | Outpatient (CLI) | payer BC ==
--- NOTE | 2017-12-19 09:51 | WOMENS IMAGING REPORT ---
EXAM DESCRIPTION: RIGHT DIAGNOSTIC MAMMO W/CAD COMPLETED DATE/TIME: 12/19/2017 9:16 am REASON FOR STUDY: CALCIFICATIONS; R92.0 R92.0 MAMMOGRAPHIC MICROCALCIFICATION FOUND ON DX IMAGING O F COMPARISON: Multiple since 2011 TECHNIQUE: Compression magnification craniocaudal and 90 views mediolateral images of the breast re corded with digital acquisition. Right whole breast 90 mediolateral view LIMITATIONS: None. FINDINGS: BREAST: Right MASSES: No suspicious masses. CALCIFICATIONS: At the 12 o'clock position right breast, pleomorphic calcifications are present worri some for malignancy. Stereotactic biopsy is recommended. ARCHITECTURAL DISTORTION: None. DEVELOPING DENSITY: None. ASYMMETRY: None noted. OTHER: No other significant findings. Read with the assistance of CAD. .[facility] - R2 Cenova Version 1.3 .[facility] Imaging - R2 Cenova Version 1.3 .[facility] Imaging - R2 Cenova Version 2.4 .[facility] - R2 Cenova Version 2.4 .[facility] - R2 [employer] Version 9.2 IMPRESSION: Right breast Calcifications variable in size shape and density worrisome for malignancy. Stereotactic biopsy recommended. BREAST DENSITY: b. There are scattered areas of fibroglandular density. BIRAD: 4 Suspicious. Biopsy should be considered. RECOMMENDATION: RECOMMENDED FOLLOW UP: Right breast stereotactic biopsy for calcifications. SPECIFIC INTERVENTION/IMAGING/CONSULTATION RECOMMENDED:Right breast stereotactic biopsy for calcifica tions. COMMUNICATION:This result was discussed with the patient, 0900 hours 12/19/2017. She understands that she requires a stereotactic biopsy. Procedure was discussed with the patient and she agreed to the procedure. This can be scheduled through [facility] COMMENT: The patient has been notified of the results by letter per SA requirements. Additional no tification policies are in place for contacting patient with suspicious or incomplete findings. Quality ID #[id number]: The [employer] recommends an annual screening mammogram for women aged 40 years or over. This facility utilizes a reminder system to ensure that all patients receive reminder letters, and/or direct phone calls for appointments. This includes reminders for routine scr eening mammograms, diagnostic mammograms, or other Breast Imaging Interventions when appropriate. Th is patient will be placed in the appropriate reminder system. The [employer] (ACR) has developed recommendations for screening MRI of the breast s in certain patient populations, to be used in conjunction with mammography. Breast MRI surveillanc e may be appropriate for women with more than 20% lifetime risk of developing breast cancer as deter mined by genetic testing, significant family history of the disease, or history of mantle radiation f or Hodgkins Disease. ACR Practice Guidelines 2008. TECHNICAL DOCUMENTATION: FINDING NUMBER: (1) ASSESSMENT: (1) JOB ID: [id number] [employer]- All Rights Reserved
== END ==
LOC: WI 08:53
PROVIDERS: ATTEND Family Medicine
DX: R92.0 Mammographic microcalcification found on diagnostic imaging of breast (principal)

== ENCOUNTER → 2017-12-26 | Day surgery (SDC) | payer BC ==
--- NOTE | 2018-01-11 18:26 | RADIOLOGY REPORT (SQ) ---
EXAM DESCRIPTION: STEREO BREAST BX; RIGHT DIG DX MAMMO NO CHG; BREAST SPECIMEN COMPLETED DATE/TIME: 12/26/2017 2:31 pm; 12/28/2017 1:25 pm; 12/28/2017 9:38 am REASON FOR STUDY: MAMMOGRAPHIC CALFICATIONS FOUND ON DIAGNOSTIC MAMMO; POST RT BREAST STEREO; POST S TEREO R92.1 MAMMOGRAPHIC CALCIFCN FOUND ON DIAGNOSTIC IMAGING OF B COMPARISON: None. TECHNIQUE: Vacuum-assisted stereotactic-guided biopsy of the lesion in the right breast. Serial prog ress stereotactic and single digital images acquired. PROCEDURE: The procedure was discussed with the patient, including possible complications such as bleeding, infection, nondiagnostic sample or possible findings such as atypical ductal hyperplasia wh ich would require additional surgery. Possible clip placement was explained. The patient agreed t o the procedure. The patient was placed prone on the stereotactic table. The lesion in the breast was localized ster eotactically. The skin of the breast was prepped in sterile fashion. Superficial and deep local an esthesia was provided. A small incision was made in the skin and the biopsy probe was advanced to t he target. Using the vacuum-assisted core biopsy device, multiple core specimens were obtained. Continuous low dose infusion of local anesthesia was used during the procedure. A specimen radiograph was obtained. The radiograph demonstrated calcifications of concern in the bio psy tissue. Using [id number] technique a pellet clip was deployed at the biopsy site. Mammographic image confirmed presence of the clip. The probe was then removed and hemostasis obtained with manua l compression. A compression bandage was applied. Postoperative instructions were explained to th e patient. POST-PROCEDURE TWO VIEW DIGITAL MAMMOGRAM: An additional two view mammogram was recorded in the [facility] mammographic suite. Marker clip is present at the biopsy site. LIMITATIONS: None. FINDINGS: PATHOLOGY: Fibroadenomatoid changes with stromal microcalcifications. No atypia or malign russell. CONCORDANT: Yes. POST PROCEDURE MAMMOGRAMS FOR MARKER PLACEMENT: Yes IMPRESSION: SUCCESSFUL STEREOTACTIC-GUIDED BIOPSY OF THE LESION IN THE RIGHT BREAST. BIOPSY RESULT S ARE CONCORDANT WITH IMAGING FINDINGS. FOLLOW-UP: Discussed benign results. Patient can resume bilateral screening mammography in November 2018. NOTIFICATION: These results were discussed with the patient, 1800 hours 01/11/2018. COMMENT: Patient medication list reviewed: Yes- Quality ID# [id number]:Eligible professional attests to doc umenting in the medical record they obtained, updated, or reviewed the patient's current medications. TECHNICAL DOCUMENTATION: JOB ID: [id number] [employer]- All Rights Reserved Reading location - IP/workstation name: PIPE PRODUCTION [email or web address]
== END ==
LOC: RAD 11:50
PROVIDERS: ATTEND Family Medicine
PROC: 0HBT3ZX Excision of Right Breast, Percutaneous Approach, Diagnostic (ICD-10-PCS; principal; 2017-12-26)
DX: R92.1 Mammographic calcification found on diagnostic imaging of breast (principal)
CPT/HCPCS: 19081; 76098; 88305

== ENCOUNTER → 2018-07-24 | Outpatient (CLI) | payer BC ==
--- NOTE | 2018-07-24 13:16 | RADIOLOGY REPORT (SQ) ---
EXAM DESCRIPTION: CHEST 2 VIEWS COMPLETED DATE/TIME: 07/24/2018 12:54 pm REASON FOR STUDY: RECURRENT RIGHT RIB CAGE PAIN BELOW RIGHT BREAST NO BRUISES OR TRAUMA NOTED COMPARISON: 03/20/2016 EXAM PARAMETERS: NUMBER OF VIEWS: two views TECHNIQUE: Digital Frontal and Lateral radiographic views of the chest acquired. RADIATION DOSE: NA LIMITATIONS: none FINDINGS: LUNGS AND PLEURA: No opacities, masses or pneumothorax. No pleural effusion. MEDIASTINUM AND HILAR STRUCTURES: No masses or contour abnormalities. HEART AND VASCULAR STRUCTURES: Heart normal size. No evidence for failure. BONES: No acute findings. HARDWARE: None in the chest. OTHER: No other significant finding. IMPRESSION: NO ACUTE RADIOGRAPHIC FINDING IN THE CHEST. TECHNICAL DOCUMENTATION: JOB ID: [id number] [employer]- All Rights Reserved Reading location - IP/workstation name: [email or web address]
--- NOTE | 2018-07-24 13:18 | RADIOLOGY REPORT (SQ) ---
EXAM DESCRIPTION: RIBS RIGHT W/O PA CHEST COMPLETED DATE/TIME: 07/24/2018 12:54 pm REASON FOR STUDY: RECURRENT RIGHT RIB CAGE PAIN BELOW RIGHT BREAST NO BRUISES OR TRAUMA NOTED R05 C OUGH R07.81 PLEURODYNIA COMPARISON: None. NUMBER OF VIEWS: Two views. TECHNIQUE: Images acquired of the right ribs in the area of focal concern. LIMITATIONS: None. FINDINGS: RIBS: No acute displaced fracture. No worrisome bone lesions. LUNGS: Limited exam. No obvious pneumothorax. No pleural effusion. OTHER: No other significant finding. IMPRESSION: NO ACUTE DISPLACED RIB FRACTURE. COMMENT: SITE OF TRAUMA/COMPLAINT MARKED/STAMP COMPLETED: NO. TECHNICAL DOCUMENTATION: JOB ID: [id number] [employer]- All Rights Reserved Reading location - IP/workstation name: [email or web address]
== END ==
LOC: RAD 12:26
PROVIDERS: ATTEND Family Medicine
DX: R07.81 Pleurodynia (principal); R05 Cough
CPT/HCPCS: 71046

== ENCOUNTER → 2019-05-13 | Outpatient (CLI) | payer BC ==
--- NOTE | 2019-05-13 13:52 | WOMENS IMAGING REPORT ---
EXAM DESCRIPTION: 3D SCREENING MAMMO BILAT COMPLETED DATE/TIME: 05/13/2019 1:08 pm REASON FOR STUDY: Z12.31 ENCOUNTER FOR SCREENING FOR MALIGNANT NEOPLASM OF BREAST Z12.12 ENCOUNTER FOR SCREENING FOR MALIGNANT NEOPLASM OF REC COMPARISON: 2016 EXAM PARAMETERS: Views: Standard craniocaudal and mediolateral oblique views of each breast recorded using digital acquisition and breast tomosynthesis. Read with the assistance of CAD. .[facility] [employer] Version 9.2 LIMITATIONS: None. FINDINGS: No suspicious masses, suspicious calcifications or architectural distortion. No areas of c oncern. IMPRESSION: NEGATIVE MAMMOGRAM. BIRADS 1. BREAST DENSITY: a. The breasts are almost entirely fatty. BIRAD: ASSESSMENT: 1 NEGATIVE RECOMMENDATION: ROUTINE SCREENING COMMENT: The patient has been notified of the results by letter per MQSA requirements. Additional no tification policies are in place for contacting patient with suspicious or incomplete findings. Quality ID #225: The [employer] recommends an annual screening mammogram for women aged 40 years or over. This facility utilizes a reminder system to ensure that all patients receive reminder letters, and/or direct phone calls for appointments. This includes reminders for routine scr eening mammograms, diagnostic mammograms, or other Breast Imaging Interventions when appropriate. Th is patient will be placed in the appropriate reminder system. TECHNICAL DOCUMENTATION: FINDING NUMBER: (1) ASSESSMENT: (1) JOB ID: [id number] [employer]- All Rights Reserved Reading location - IP/workstation name: [email or web address]
== END ==
LOC: WI 11:09
PROVIDERS: ATTEND Family Medicine
DX: Z12.31 Encounter for screening mammogram for malignant neoplasm of breast (principal)
CPT/HCPCS: 77063; 77067

== ENCOUNTER → 2019-09-18 | Outpatient (CLI) | payer BC ==
--- NOTE | 2019-09-18 09:27 | WOMENS IMAGING REPORT ---
EXAM DESCRIPTION: U/S ABDOMEN TOTAL COMPLETED DATE/TIME: 09/18/2019 7:34 am REASON FOR STUDY: R10.11 RIGHT UPPER QUADRANT PAIN R10.11 RIGHT UPPER QUADRANT PAIN M54.5 LOW BACK PAIN COMPARISON: Right upper quadrant ultrasound 06/02/2019 CT angio chest 02/19/2017, 03/20/2016 TECHNIQUE: Dynamic and static grayscale images acquired of the abdomen and recorded on PACS. Additio nal selected color Doppler and spectral images recorded. Note: Study does not meet criteria for complete doppler/duplex scan LIMITATIONS: Midline bowel gas, body habitus FINDINGS: PANCREAS: Not visualized due to midline bowel gas LIVER: No masses. Echotexture normal. LIVER VASCULATURE: Normal directional flow of the main portal vein and hepatic veins. GALLBLADDER: No stones. Normal wall thickness. No pericholecystic fluid. ULTRASOUND-DETECTED TALAMANTES'S SIGN: Negative. INTRAHEPATIC DUCTS AND COMMON DUCT: CBD and intrahepatic ducts normal caliber. No filling defects. INFERIOR VENA CAVA: Not well seen due to midline bowel gas AORTA: Not well seen due to midline bowel gas RIGHT KIDNEY: Normal size. Normal echogenicity. No solid or suspicious masses. No hydronephros is. No calcifications. LEFT KIDNEY: Normal size. Normal echogenicity. No solid or suspicious masses. No hydronephrosi s. No calcifications. SPLEEN: Normal size. No solid masses. PERITONEAL AND PLEURAL SPACES: No ascites or effusions. OTHER: No other significant finding. IMPRESSION: No gallstones, gallbladder wall thickening or pericholecystic fluid. No hydronephrosis or upper hydroureter Pancreas, midline abdominal aorta, inferior vena cava not well seen due to bowel gas TECHNICAL DOCUMENTATION: JOB ID: [id number]- All Rights Reserved Reading location - IP/workstation name: [email or web address] [email or web address]
== END ==
LOC: WI 07:00
PROVIDERS: ATTEND Family Medicine
DX: R10.11 Right upper quadrant pain (principal); M54.5 Low back pain
CPT/HCPCS: 76700